=== PATIENT | male | born 1960 | race Caucasian/White ===

== ENCOUNTER → 2018-12-28 | Outpatient (CLI) | payer BC, OTHER ==
[~2018-12-28] MED LIST: AMIT50TA PO; DICL75TA3 PO; HYDR-3237 PO
[2018-12-28 15:27] LABS: BASOPHILS # (AUTO) 0.04 x10^3/uL (0-0.1); BASOPHILS % (AUTO) 0 % (0-1); EOSINOPHILS % (AUTO) 0 % (1-7); LYMPHOCYTES # (AUTO) 1.18 x10^3/uL (1-3.4); LYMPHOCYTES % (AUTO) 11 % (22-44); MD NO; MEAN CORPUSCULAR HEMOGLOBIN 33.7 pg (27.5-34.5); MEAN CORPUSCULAR HGB CONC 33.9 g/dL (33.2-36.2); MEAN CORPUSCULAR VOLUME 99.3 fL (81-97); MEAN PLATELET VOLUME 8.4 fL (7.4-10.4); MONOCYTES # (AUTO) 0.27 x10^3/uL (0.2-0.8); MONOCYTES % (AUTO) 2 % (2-9); NEUTROPHILS # (AUTO) 9.66 x10^3/uL (1.8-6.8); NEUTROPHILS % (AUTO) 87 % (42-75); PLATELET COUNT 317 x10^3/uL (130-400); RED BLOOD COUNT 4.58 x10^6/uL (4.38-5.82); RED CELL DISTRIBUTION WIDTH 12.4 % (9.4-14.8)
[2018-12-28 15:35] LABS: ANION GAP 6 mmol/L (5-15); CALCIUM 8.9 mg/dL (8.5-10.1); CHLORIDE 111 mmol/L (98-107); CREATININE 1.04 mg/dL (0.7-1.3)
== END | disposition home or self-care (01) ==
LOC: STAR 14:25
PROVIDERS: ATTEND Orthopaedic Surgery
DX: Z01.818 Encounter for other preprocedural examination (principal); M17.12 Unilateral primary osteoarthritis, left knee; I25.2 Old myocardial infarction; Z84.89 Family history of other specified conditions
CPT/HCPCS: 36415; 80048; 85025; 87081; 93005

== ENCOUNTER 2020-10-21 06:47 | Day surgery (SDC) | payer OTHER ==
[2020-10-19 08:53] LABS: ALANINE AMINOTRANSFERASE 32 U/L (12-78); ALBUMIN 3.5 g/dL (3.4-5.0); ANION GAP 9 mmol/L (5-15); CALCIUM 9.1 mg/dL (8.5-10.1); CHLORIDE 108 mmol/L (98-107); CREATININE 0.87 mg/dL (0.7-1.3)
[2020-10-19 08:55] LABS: ALKALINE PHOSPHATASE 90 U/L (45-117); BILIRUBIN,TOTAL 1.3 mg/dL (0.2-1.0); TOTAL PROTEIN 7.7 g/dL (6.4-8.2)
[~2020-10-21] VITALS: Ht 165.1 cm; Wt 128.7 kg
[~2020-10-21 06:47] MED LIST changes: +ATOR-2 PO; +CLOP75TA PO; +EPINEPHRINE 1 MG/ML, 1ML ONE; +HYDR1TAB53 PO; +KETOROLAC 60 MG/2 ML ONE; +LISI10TA19 PO; +ROPIvacaine/PF 0.2%, 20 ML ONE; +SODIUM CHLORIDE 0.9% 50 ML ONE; +TRANEXAMIC ACID 100 MG/ML, 10ML ONE; +VANCOMYCIN 1,000 MG ONE
[2020-10-21 07:30] VITALS: BP 154/93
[2020-10-21] MEDS ORDERED: LACTATED RINGERS 1,000 ML IV SCH (07:30)
[2020-10-21] MEDS ORDERED: CHLORHEXIDINE 15 ML UDC PO ONE (07:30)
[2020-10-21] MEDS ORDERED: FENTANYL PF 250 MCG/5ML ONE (07:48)
[2020-10-21] MEDS ORDERED: MIDAZOLAM 1 MG/ML, 2ML ONE (07:48)
[2020-10-21] MEDS ORDERED: SCOPOLAMINE 1MG PATCH TD ONE (08:39)
[2020-10-21] MEDS ORDERED: DOCUSATE 100 MG CAPSULE PO SCH (09:00)
[2020-10-21] MEDS ORDERED: CLOPIDOGREL 75 MG TABLET PO SCH (09:00)
[2020-10-21] MEDS ORDERED: OXYcodone 5 MG/5 ML ORAL.SOL UDC PO PRN ×2 (09:00→10:00)
[2020-10-21] MEDS ORDERED: PROMETHAZINE 25 MG/ML, 1ML IM PRN (09:00)
[2020-10-21] MEDS ORDERED: OXYcodone/APAP 5/325MG TABLET PO PRN (09:00)
[2020-10-21] MEDS ORDERED: ONDANSETRON 4 MG TABLET PO PRN (09:00)
[2020-10-21] MEDS ORDERED: DIPHENHYDRAMINE 50 MG CAPSULE PO PRN (09:00)
[2020-10-21] MEDS ORDERED: HYDROmorphone 1 MG/ML, 1ML INJ IVPush PRN (09:00)
[2020-10-21] MEDS ORDERED: DIAZEPAM 5 MG TABLET PO PRN (09:00)
[2020-10-21] MEDS ORDERED: KETOROLAC 30 MG/1 ML IV SCH (09:00)
[2020-10-21] MEDS ORDERED: PROMETHAZINE 25 MG/ML, 1ML IV PRN (10:00)
[2020-10-21] MEDS ORDERED: DIAZEPAM 5 MG/ML, 2ML IV PRN ×2 (10:00)
[2020-10-21] MEDS ORDERED: HYDROmorphone 1 MG/ML, 1ML INJ IV PRN (10:00)
[2020-10-21] MEDS ORDERED: KETOROLAC 30 MG/1 ML IV PRN (10:00)
[2020-10-21] MEDS ORDERED: METOCLOPRAMIDE 5 MG/ML, 2ML IV PRN (10:00)
[2020-10-21] MEDS ORDERED: ONDANSETRON 2MG/ML, 2ML IVPush PRN (10:00)
[2020-10-21] MEDS ORDERED: MEPERIDINE/PF 25MG/0.5ML IVPush PRN (10:00)
[2020-10-21] MEDS ORDERED: LABETALOL 5MG/ML, 20ML IV PRN (10:00)
[2020-10-21] MEDS ORDERED: hydrALAzine 20 MG/ML, 1ML IV PRN (10:00)
[2020-10-21] MEDS ORDERED: ALBUTEROL SULFATE 2.5 MG/3 ML NPPB PRN (10:00)
[2020-10-21] MEDS ORDERED: TRANEXAMIC ACID 1,000 MG in SODIUM CHLORIDE 0.9% 100 ML IVPB ONE (10:28)
[2020-10-21] MEDS ORDERED: OXYcodone 5 MG/5 ML ORAL.SOL UDC ONE (10:44)
[2020-10-21] MEDS ORDERED: HYDROmorphone 2 MG/ML, 1ML ONE (10:44)
[2020-10-21] MEDS ORDERED: DIAZEPAM 5 MG/ML, 2ML ONE ×2 (10:44→10:49)
[2020-10-21] MEDS ORDERED: FENTANYL PF 100 MCG/2ML ONE (10:44)
[2020-10-21] MEDS: FENTANYL PF 100 MCG/2ML IV PRN ×2 (10:45→11:10)
[2020-10-21] MEDS ORDERED: hydrALAzine 20 MG/ML, 1ML ONE (11:04)
[2020-10-21] MEDS ORDERED: ONDANSETRON 2MG/ML, 2ML ONE (15:21)
[2020-10-21] MEDS ORDERED: CEFAZOLIN 1,000 MG ONE (15:21)
[2020-10-21] MEDS ORDERED: PROPOFOL 10 MG/ML, 20ML ONE (15:21)
[2020-10-21] MEDS ORDERED: DEXAMETHASONE 4 MG/ML, 1ML ONE (15:21)
[2020-10-21] MEDS ORDERED: SUCCINYLCHOLINE 20 MG/ML, 10ML ONE (15:21)
[2020-10-21] MEDS ORDERED: ROCURONIUM 10MG/ML,5ML ONE (15:21)
[2020-10-21] MEDS ORDERED: ATORVASTATIN 80 MG TABLET PO SCH (21:00)
[2020-10-21] MEDS ORDERED: ASPIRIN 325 MG TABLET PO SCH (21:00)
[2020-10-21] MEDS ORDERED: AMITRIPTYLINE 50 MG TABLET PO SCH (21:00)
[2020-10-21] MEDS ORDERED: CEFAZOLIN PMX 1GM/50ML 50 ML IVPB SCH (21:21)
[2020-10-22] MEDS ORDERED: DEXAMETHASONE 4 MG/ML, 1ML IVPush ONE (06:00)
[2020-10-22] MEDS ORDERED: LISINOPRIL 10 MG TABLET PO SCH (09:00)
== END 2020-10-21 14:30 | disposition home or self-care (01) ==
LOC: OUT 06:47 → ORIP 08:33 → UNDOADMOB 08:33
PROVIDERS: ATTEND Orthopaedic Surgery
DX: M17.12 Unilateral primary osteoarthritis, left knee (principal); M25.762 Osteophyte, left knee; M21.162 Varus deformity, not elsewhere classified, left knee; M25.862 Other specified joint disorders, left knee; G47.33 Obstructive sleep apnea (adult) (pediatric); Z79.02 Long term (current) use of antithrombotics/antiplatelets; Z79.899 Other long term (current) drug therapy; Z86.73 Personal history of transient ischemic attack (TIA), and cerebral infarction without residual deficits
CPT/HCPCS: 27447; 36415; 64447; 73560; 80053; 87081; 93005; 97110; 97161; C1713; C1776; J0171; J0330; J0360; J0690; J1100; J1170; J1885; J2250; J2405; J2704; J2795; J3010; J3360; J7120; J3370